=== PATIENT | female | born 1965 | race Caucasian/White ===

== ENCOUNTER 2023-11-17 07:00 | Outpatient (NON) | payer OTHER, SELFPAY | END 2023-11-17 07:01 | disposition home or self-care (01) | LOC: ANHLAB 11-18 07:08 | PROVIDERS: PCP Nurse Practitioner Family; Visit Provider Internal Medicine Gastroenterology | DX: Z12.11 Encounter for screening for malignant neoplasm of colon (principal); K51.90 Ulcerative colitis, unspecified, without complications | CPT/HCPCS: 88305 ==

== ENCOUNTER 2023-11-17 07:06 | Day surgery (SDC) | payer OTHER, SELFPAY ==
[2023-09-08 13:13] VITALS: BMI 24.5
[2023-11-08 11:34] VITALS: BMI 24.5
[2023-11-17 08:37] VITALS: BP 168/90; PULSE 72; RESP 15; TEMP 36.7; O2SAT 10
[2023-11-17] MEDS: LACTATED RINGERS 1,000 ML 150 ML IV CONT (08:39)
--- NOTE | 2023-11-17 09:13 | WPDANESEPPF ---
Anes - Initial Pre Proc Eval Procedure: Operation Date: 11/17/23 09:30 Proposed Procedures p Screening Colonoscopy - Cristino Hester MD Date/Time: 11/17/23 09:13 Surgeon: Cristino Hester MD Pre Op Diagnosis: Neoplasm screening Patient Data Age: 58 Gender: F Height: 1.55 m Weight: 59.5 kg Last Vital Signs Temp 36.7 C 11/17/23 08:37 Pulse 72 11/17/23 08:37 Resp 15 11/17/23 08:37 BP 168/90 H 11/17/23 08:37 Pulse Ox 10 L 11/17/23 08:37 O2 Del Method Room Air 11/17/23 08:37 Allergies Allergy/AdvReac Type Severity Reaction Status Date / Time erythromycin base Allergy Unknown Rash Verified 11/17/23 08:35 Penicillins Allergy Unknown Rash Verified 11/17/23 08:35 Home Medications Medication Instructions Recorded Confirmed Type semaglutide 1 mg/dose (2 mg/1.5 1 mg subcut WEEKLY 12/29/22 11/17/23 History mL) subcutaneous pen injector cholecalciferol (vitamin D3) 125 125 mcg PO DAILY #90 caps 06/09/23 11/17/23 Rx mcg (5,000 unit) capsule Lactobacillus 1 cap PO DAILY 11/08/23 11/17/23 History acidophilus-Bifidobac.animalis 2.5 billion cell capsule (Daily Probiotic) thyroid (pork) 60 mg tablet 60 mg PO DAILY 11/08/23 11/17/23 History thyrovanz 1 cap PO DAILY 11/08/23 11/17/23 History lisdexamfetamine 30 mg capsule 30 mg PO DAILY #30 caps 11/15/23 11/17/23 Rx (Vyvanse) Patient hx anesthesia problems: none Family hx anesthesia problems: none Results Review: All pre-operative results and documents have been reviewed as part of the pre-operative evaluation. FOR[facility]LY [facility] Past Medical History Medical History Abdominal bloating ADD (attention deficit disorder) without hyperactivity Anxiety disorder, unspecified BMI 25.0-25.9,adult BMI 26.0-26.9,adult BMI 27.0-27.9,adult BMI 28.0-28.9,adult Dermatitis Exocrine pancreatic insufficiency History of left breast cancer left- lumpectomy and radiation Hot flashes Insomnia Menopausal and perimenopausal disorder Nasal congestion Restless leg Screening for lipid disorders Vitamin D deficiency Surgical History Surgical History H/O breast augmentation 1987, reconstruction after breast ca 2014 H/O lumpectomy left 2011 History of repair of rectocele and enterocele 2019 S/P partial hysterectomy 2015 Family History Family History Father Heart disease COPD (chronic obstructive pulmonary disease) Oxygen dependent Mother No problems noted. Sibling Thyroid activity decreased Social History Social History (Updated 11/17/23 @ 09:14 by Adair Reyes MD) Smoking status: Former smoker Tobacco type: cigarettes Second hand tobacco smoke exposure: No Alcohol intake: current Alcohol use details: social Substance use: never Substance use type: does not use Lack of Transportation: No Lack of Food: Never True Current Housing: I Have Housing Concerned About Future Housing: No Difficulty Paying Gas/Electric Bills: No Difficulty Paying for Meds: No Currently Unemployed: No Education: Master's Degree or Higher Difficulty w/ Childcare or Family Care: No Living arrangements: alone Occupation/Education: occupation 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 Gender identity (if verbalized by the patient): Female Spiritual care concerns: No Anes - Eval Final PreProcedure Day of Procedure 11/17/23 09:13 Patient weight: normal Heart: regular rate and rhythm Lungs: clear to auscultation Airway: Mallampati scale class II Neurological: alert and oriented Last oral intake: >/= 8 hours ASA classification: II Emergent: no Anesthetic plan: proceed Anesthesia type and monitoring: general GIVS and standard monitoring Results Review: All pre-operative results and documents
--- NOTE | 2023-11-17 09:23 | PM.HPGS ---
History of Present Illness History of Present Illness Consent: Risks, benefits, and alternatives have been discussed and questions answered. Patient agrees to proceed with procedure. Chief complaint: Neoplasm screening Narrative: Tracy Corona is a 58 year old female referred for screening colonoscopy. Patient reports that 1 month ago had mucus in her stools fecal soiling, and some bright red blood per rectum. Patient was seen and treated empirically for possible ?bacterial 5?. She was given a trial of Xifaxan and neomycin for possible irritable bowel syndrome as well. Patient states symptoms have improved to a significant degree. She continues to complain of abdominal bloating. Family history is significant for Crohn's disease in her father. Patient no longer has any blood in her stools. She recently has rectal irritation and is concerned over possible hemorrhoids. Patient has never had screening colonoscopy in is referred for screening colonoscopy today. Review of Systems Review of Systems: All systems reviewed & are unremarkable except as noted in HPI and below PMFSH Past Medical History Medical History Abdominal bloating ADD (attention deficit disorder) without hyperactivity Anxiety disorder, unspecified BMI 25.0-25.9,adult BMI 26.0-26.9,adult BMI 27.0-27.9,adult BMI 28.0-28.9,adult Dermatitis Exocrine pancreatic insufficiency History of left breast cancer left- lumpectomy and radiation Hot flashes Insomnia Menopausal and perimenopausal disorder Nasal congestion Restless leg Screening for lipid disorders Vitamin D deficiency Surgical History Surgical History H/O breast augmentation 1987, reconstruction after breast ca 2013 H/O lumpectomy left 2010 History of repair of rectocele and enterocele 2019 S/P partial hysterectomy 2015 Family History Family History Father Heart disease COPD (chronic obstructive pulmonary disease) Oxygen dependent Mother No problems noted. Sibling Thyroid activity decreased Social History Social History (Updated 11/17/23 @ 09:14 by Adair Reyes MD) Smoking status: Former smoker Tobacco type: cigarettes Second hand tobacco smoke exposure: No Alcohol intake: current Alcohol use details: social Substance use: never Substance use type: does not use Lack of Transportation: No Lack of Food: Never True Current Housing: I Have Housing Concerned About Future Housing: No Difficulty Paying Gas/Electric Bills: No Difficulty Paying for Meds: No Currently Unemployed: No Education: Master's Degree or Higher Difficulty w/ Childcare or Family Care: No Living arrangements: alone Occupation/Education: occupation 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 Gender identity (if verbalized by the patient): Female Spiritual care concerns: No Meds Home Medications and Allergies Home Medications Medication Instructions Recorded Confirmed Type semaglutide 1 mg/dose (2 mg/1.5 1 mg subcut WEEKLY 12/29/22 11/17/23 History mL) subcutaneous pen injector cholecalciferol (vitamin D3) 125 125 mcg PO DAILY #90 caps 06/09/23 11/17/23 Rx mcg (5,000 unit) capsule Lactobacillus 1 cap PO DAILY 11/08/23 11/17/23 History acidophilus-Bifidobac.animalis 2.5 billion cell capsule (Daily Probiotic) thyroid (pork) 60 mg tablet 60 mg PO DAILY 11/08/23 11/17/23 History thyrovanz 1 cap PO DAILY 11/08/23 11/17/23 History lisdexamfetamine 30 mg capsule 30 mg PO DAILY #30 caps 11/15/23 11/17/23 Rx (Vyvanse) Allergies Allergy/AdvReac Type Severity Reaction Status Date / Time erythromycin base Allergy Unknown Rash Verified 11/17/23 08:35 Penicillins Allergy Unknown Rash Verified 11/17/23 08:35 Vital Signs Vital Sig
[2023-11-17 09:54] VITALS: BP 147/97; PULSE 88; RESP 16; O2SAT 100
[2023-11-17 10:04] VITALS: BP 161/98; PULSE 94; RESP 18; O2SAT 100
[2023-11-17 10:14] VITALS: BP 122/100; PULSE 81; RESP 16; O2SAT 100
--- NOTE | 2023-11-17 10:29 | WPDANESPN ---
Anes - Prog Note Post-Op Date/Time: 11/17/23 10:29 Cardiovascular status: normal Respiratory status: normal Airway patency: baseline Mental status: baseline Post-Op hydration status: normal Vital Signs: Last Vital Signs Temp 36.7 C 11/17/23 08:37 Pulse 94 11/17/23 10:04 Resp 18 11/17/23 10:04 BP 161/98 H 11/17/23 10:04 Pulse Ox 100 11/17/23 10:04 O2 Del Method Room Air 11/17/23 10:04 Pain Score (VAS): 0/10 I/O: Intake & Output 11/16/23 11/17/23 11/17/23 23:59 07:59 15:59 Intake Total 1000 Balance 1000 Patient Feedback: Patient satisfied with anesthetic care.
== END 2023-11-17 10:32 | disposition home or self-care (01) ==
PROVIDERS: PCP Nurse Practitioner Family; Visit Provider Internal Medicine Gastroenterology
PROC: 0DJD8ZZ Inspection of Lower Intestinal Tract, Via Natural or Artificial Opening Endoscopic (ICD-10-PCS; CPT 45378; principal; 2023-11-17 09:30)
DX: Z12.11 Encounter for screening for malignant neoplasm of colon (principal); K51.20 Ulcerative (chronic) proctitis without complications
CPT/HCPCS: 45380

== ENCOUNTER 2024-02-23 15:10 | Outpatient (CLI) | payer OTHER, SELFPAY ==
--- NOTE | ~2024-02-23 | MM_ITS ---
EXAMINATION: MM scrn ana implant BI w ariana HISTORY: Screening mammogram TECHNIQUE: Craniocaudal and mediolateral oblique 3-D tomosynthesis images with implant displacement a nd synthetic 2-D images were generated. Craniocaudal and mediolateral oblique views of the breasts wi thout implant displacement were obtained using full field digital mammography. CAD analysis was submi tted and interpreted. COMPARISON: No prior mammogram is available for comparison at this institution. BREAST PARENCHYMAL COMPOSITION: Not dense: There are scattered areas of fibroglandular density. FINDINGS: There is no evidence of suspicious mass, calcification, or architectural distortion to sugg est malignancy in either breast. There has been no suspicious interval change. IMPRESSION: 1. No mammographic evidence of malignancy. 2. Recommend routine screening mammography in one year. BI-RADS Category 1: Negative Reviewed, dictated and finalized at location B.
== END 2024-02-23 15:11 | disposition home or self-care (01) ==
LOC: MICIMG 15:11
PROVIDERS: PCP Nurse Practitioner Family; Visit Provider Nurse Practitioner Family
DX: Z12.31 Encounter for screening mammogram for malignant neoplasm of breast (principal); Z98.82 Breast implant status
CPT/HCPCS: 77063; 77067